=== PATIENT | male | born 1965 | race Caucasian/White ===

== ENCOUNTER → 2016-11-07 | Outpatient (CLI) | payer MEDICAID | END | disposition home or self-care (01) | LOC: MMGSC 16:25 | PROVIDERS: ATTEND Family Medicine | DX: E03.9 Hypothyroidism, unspecified (principal) | CPT/HCPCS: 36415; 84439; 84443; 84481 ==

== ENCOUNTER → 2017-02-26 | Outpatient (CLI) | payer MEDICAID ==
[2017-02-26 18:02] LABS: Basophils # (A) 0.1 k/uL (0-0.2); Basophils % (A) 1 %; CH 31.3; CHCM 34.1; Eosinophils # (A) 0.2 k/uL (0-0.7); Eosinophils % (A) 3 %; HCT 51.9 % (39.0-53.0); HDW 2.66; Luc # (Auto) 0.14; Luc % (Auto) 2; Lymphocytes # (A) 1.5 k/uL (1.0-4.8); Lymphocytes % (A) 23 %; MCH 30.2 pg (25.0-35.0); MCHC 32.7 g/dL (31.0-37.0); MCV 92.4 fL (80.0-100.0); Mean Platelet Volume 7.3; Monocytes # (A) 0.4 k/uL (0-1.0); Monocytes % (A) 6 %; Neutrophils # (A) 4.3 k/uL (1.3-7.7); Neutrophils % (A) 65 %; RBC 5.62 m/uL (4.30-5.90); RDW 13.7 % (11.5-15.5); WBC 6.5 k/uL (3.8-10.6); WBC (Perox) 6.96
[2017-02-26 18:15] LABS: ALT 32 U/L (21-72); AST 27 U/L (17-59); Alkaline Phosphatase 62 U/L (38-126); Anion Gap 12 mmol/L; Blood Urea Nitrogen 21 mg/dL (9-20); Calcium 9.6 mg/dL (8.4-10.2); Carbon Dioxide 28 mmol/L (22-30); Chloride 102 mmol/L (98-107); Cholesterol 164 mg/dL (<200); Glucose 125 mg/dL (74-99); HDL Cholesterol 37 mg/dL (40-60); Non-African American GFR(MDRD) >60 (>60 ml/min/1.73 sqM); Potassium 4.3 mmol/L (3.5-5.1); Sodium 142 mmol/L (137-145); Total Bilirubin 1.5 mg/dL (0.2-1.3); Total Protein 7.4 g/dL (6.3-8.2); Triglycerides 245 mg/dL (<150)
== END ==
LOC: MMGSC 09:23
PROVIDERS: ATTEND Nurse Practitioner Adult Health
DX: E03.9 Hypothyroidism, unspecified (principal); I10 Essential (primary) hypertension
CPT/HCPCS: 36415; 80053; 80061; 84439; 84443; 84481; 85025

== ENCOUNTER → 2021-03-12 | Outpatient (CLI) | payer MEDICAID ==
--- NOTE | 2021-03-12 16:02 | US ---
EXAMINATION TYPE: US thyroid st tissue head/neck DATE OF EXAM: 03/12/2021 COMPARISON: NONE CLINICAL HISTORY: E03.9 Hypothyroidism. Patient has been taking thyroid medication for 20 years GLAND SIZE: Right Lobe: 3.9 x 1.3 x 1.4 cm Overall Parenchyma: heterogenous Left Lobe: 3.2 x 1.1 x 1.1 cm Overall Parenchyma: heterogeneous Isthmus Thickness: 0.4 cm NODULES RIGHT: # of nodules measured on right: 1 1. 1.6 X 1.1 x 0.9 cm, mid solid or almost completely solid, isoechoic nodule, which is wider than tall, with smooth margins, without echogenic foci. Prior size: No previous LEFT: # of nodules measured on left: 0 ISTHMUS: # of nodules measured in the isthmus: 0 Bilateral neck scanned, no evidence of lymphadenopathy. Diffusely heterogeneous thyroid bilaterally. IMPRESSION: Diffusely heterogeneous thyroid gland. There is a 1.6 cm right thyroid isoechoic nodule. Continued so nographic follow-up is recommended. 2017 ACR TI-RADS LEVEL: 3 *Highest TI-RADS level nodule reported
== END | disposition home or self-care (01) ==
LOC: RADUSWWP 12:07
PROVIDERS: ATTEND Family Medicine
DX: E03.9 Hypothyroidism, unspecified (principal); E04.1 Nontoxic single thyroid nodule
CPT/HCPCS: 76536

== ENCOUNTER 2021-04-06 09:20 | Day surgery (SDC) | payer MEDICAID ==
[2021-04-06 09:43] VITALS: RESP 16; TEMP 98.7
[2021-04-06] MEDS ORDERED: ALPRAZolam 0.5 MG TAB PO STA (09:43)
[2021-04-06 11:10] VITALS: BP 135/81; PULSE 72
--- NOTE | 2021-04-06 14:41 | US ---
ULTRASOUND GUIDED FNA THYROID BIOPSY: CLINICAL HISTORY: Right thyroid nodule FINDINGS: The procedure was explained to the patient. The risks, complications, benefits and alternatives were discussed and any questions were answered. Informed consent was obtained. Patient was placed supin e on the ultrasound table and prepped and draped in the usual sterile fashion. Utilizing a 25 gauge needle, five passes were made into the requested right thyroid nodule. Patient was stable throughout the procedure. Pathology is pending. All elements of maximal barrier technique were utilized. IMPRESSION: 1. Successful ultrasound guided FNA thyroid biopsy.
== END 2021-04-06 11:05 | disposition home or self-care (01) ==
LOC: RADPROMAIN 09:20
PROVIDERS: ATTEND Otolaryngology
DX: E04.1 Nontoxic single thyroid nodule (principal)
CPT/HCPCS: 10005; 88173; 88305

== ENCOUNTER → 2021-04-06 | Outpatient (CLI) | payer MEDICAID | END | disposition home or self-care (01) | LOC: LABWHC1 10:58 | PROVIDERS: ATTEND Otolaryngology | DX: E03.9 Hypothyroidism, unspecified (principal) | CPT/HCPCS: 36415; 83516; 86800 ==

== ENCOUNTER → 2021-10-18 | Outpatient (CLI) | payer MEDICAID ==
--- NOTE | 2021-10-18 19:23 | US ---
EXAMINATION TYPE: US thyroid st tissue head/neck DATE OF EXAM: 10/18/2021 COMPARISON: US 2020 CLINICAL HISTORY: 55-year-old male E04.1 thyroid nodule. TECHNIQUE: Multiple sonographic images of the thyroid gland are obtained. FINDINGS: GLAND SIZE: Right Lobe: 4.8 x 1.7 x 1.6 cm Overall Parenchyma: heterogenous Left Lobe: 4.5 x 1.7 x 1.5 cm Overall Parenchyma: heterogeneous Isthmus Thickness: 0.3 cm NODULES RIGHT: # of nodules measured on right: 1 1. 1.4 X 1.2 x 1.0 cm, lower mid, solid or almost completely solid, heterogeneously isoechoic nodul e, which is wider than tall, with ill-defined margins, without echogenic foci. Prior size: 1.6 x 1.1 x 0.9 cm LEFT: # of nodules measured on left: 0 ISTHMUS: # of nodules measured in the isthmus: 0 Bilateral neck scanned, no evidence of lymphadenopathy. IMPRESSION: Heterogeneous glandular parenchyma could represent goiter diffuse peritonitis. Solitary 1.4 cm TR3 right thyroid nodule slightly smaller compared to 1.6 cm, previously.
== END | disposition home or self-care (01) ==
LOC: RADUSWWP 13:23
PROVIDERS: ATTEND Otolaryngology
DX: E04.1 Nontoxic single thyroid nodule (principal)
CPT/HCPCS: 76536

== ENCOUNTER → 2022-04-29 | Outpatient (CLI) | payer MEDICAID ==
--- NOTE | 2022-04-29 14:49 | US ---
EXAMINATION TYPE: US thyroid st tissue head/neck DATE OF EXAM: 04/29/2022 COMPARISON: US October 18, 2021 CLINICAL HISTORY: E04.1 Right thyroid nodule. Right thyroid nodule. Hx FNA. Patient is currently taki ng thyroid medication. GLAND SIZE: Right Lobe: 4.9 x 1.5 x 1.9 cm Overall Parenchyma: heterogenous Left Lobe: 4.1 x 1.3 x 1.5 cm Overall Parenchyma: heterogeneous Isthmus Thickness: 0.3 cm NODULES RIGHT: # of nodules measured on right: 1 1. 1.6 X 1.2 x 1.2 cm, lower mid, solid or almost completely solid, isoechoic nodule, which is as w matthew as it is tall, with ill-defined margins, without echogenic foci. Prior size: 1.4 x 1.2 x 1.0 cm LEFT: # of nodules measured on left: 0 ISTHMUS: # of nodules measured in the isthmus: 1 1. 0.6 X 0.5 x 0.3 cm solid or almost completely solid, hyperechoic nodule, which is wider than bimal l, with smooth margins, appears calcified, posterior shadowing seen. Prior size: Does not correlate. Bilateral neck scanned, hypoechoic area with hyperechoic center seen within the left neck: 1.1 x 1.2 x 0.4 cm. Heterogeneous normal-sized thyroid with stable right-sided nodule accounting for technical difference s and calcified 6 mm shadowing nodule current study not clearly seen on prior studies. Last images sh ow benign appearing subcentimeter left neck lymph node. IMPRESSION: 2017 ACR TI-RADS LEVEL: As above. No suspicious new or enlarging greater than 1.0 cm solid nodules.
== END | disposition home or self-care (01) ==
LOC: RADUSWWP 14:01
PROVIDERS: ATTEND Otolaryngology
DX: E04.1 Nontoxic single thyroid nodule (principal)
CPT/HCPCS: 76536

== ENCOUNTER → 2023-01-28 | Outpatient (CLI) | payer MEDICAID ==
--- NOTE | 2023-01-28 22:11 | US ---
EXAMINATION TYPE: US thyroid st tissue head/neck DATE OF EXAM: 01/28/2023 COMPARISON: 03/09 US CLINICAL HISTORY: E04.1 THYROID NODULE. follow up on known nodules; on thyroid medication x 10 yrs GLAND SIZE: Right Lobe: 3.6 x 1.5 x 1.0 cm Overall Parenchyma: diffusely heterogeneous Left Lobe: 2.9 x 1.3 x 1.1 cm Overall Parenchyma: diffusely heterogeneous Isthmus Thickness: 0.5 cm NODULES RIGHT: # of nodules measured on right: 1 1. 1.4 X 1.1 x 0.9 cm, mid lower, Prior size: 1.6 x 1.2 x 1.2 cm TIRADS Score: 3 TIRADS Category 3: Mildly Suspicious Composition: Solid or almost completely solid (2 points). Echogenicity: Hyperechoic or isoechoic (1 point). Shape: Wider than tall (0 points). Margin: Smooth (0 points). Echogenic foci: None or large comet-tail artifacts (0 points) Recommendation: If >2.5cm: FNA; If >1.5cm: Follow up at 1,3,5 years LEFT: # of nodules measured on left: 0 ISTHMUS: # of nodules measured in the isthmus: 1 1. 0.6 X 0.4 x 0.7 cm calcified shadowing nodule Prior size: 0.6 x 0.5 x 0.3 cm TIRADS Score: 4 TIRADS Category 4: Moderately Suspicious Composition: Indeterminate due to calcification (2 points). Echogenicity: Hyperechoic or isoechoic (1 point). Shape: Wider than tall (0 points). Margin: Smooth (0 points). Echogenic foci: Macrocalcifications (1 point) Recommendation: If >1.5cm: FNA; If >1cm: Follow up at 1,2, 3,5 years Diffusely heterogeneous and attenuating thyroid issue, difficult to distinguish nodules within the he terogeneous lobes. Bilateral neck scanned, no evidence of lymphadenopathy. IMPRESSION: 1. Heterogenous thyroid gland similar to prior's. 2. Stable Right thyroid gland and isthmus nodules which meet criteria for follow-up.
== END | disposition home or self-care (01) ==
LOC: RADUSWWP 14:47
PROVIDERS: ATTEND Otolaryngology
DX: E04.2 Nontoxic multinodular goiter (principal)
CPT/HCPCS: 76536

== ENCOUNTER → 2023-05-01 | Outpatient (CLI) | payer MEDICAID ==
[2023-05-02 03:37] LABS: T4, Free (Free Thyroxine) 1.36 ng/dL (0.80-1.80)
== END | disposition home or self-care (01) ==
LOC: LABWHC1 14:06
PROVIDERS: ATTEND Internal Medicine
DX: E03.9 Hypothyroidism, unspecified (principal)
CPT/HCPCS: 36415; 84439; 84443

== ENCOUNTER → 2023-11-18 | Outpatient (CLI) | payer MEDICAID ==
[2023-11-18 20:44] LABS: T4, Free (Free Thyroxine) 1.98 ng/dL (0.80-1.80)
== END | disposition home or self-care (01) ==
LOC: LABWHC1 14:16
PROVIDERS: ATTEND Internal Medicine
DX: E03.9 Hypothyroidism, unspecified (principal); E55.9 Vitamin D deficiency, unspecified
CPT/HCPCS: 36415; 82306; 84439; 84443

== ENCOUNTER → 2024-02-17 | Outpatient (CLI) | payer MEDICAID ==
--- NOTE | 2024-02-18 08:49 | US ---
EXAMINATION TYPE: US thyroid st tissue head/neck DATE OF EXAM: 02/17/2024 COMPARISON: Multiple, most recent 01/28/2023 CLINICAL INDICATION: Male, 58 years old with history of E04.1 Thyroid Nodule; GLAND SIZE: Right Lobe: 3.6 x 1.5 x 1.7 cm Overall Parenchyma: homogeneous Left Lobe: 2.9 x 1.0 x 1.1 cm Overall Parenchyma: homogeneous Isthmus Thickness: 0.6 cm NODULES RIGHT: # of nodules measured on right: 1 1. 1.4 X 1.1 x 1.1 cm, lower mid, solid or almost completely solid, isoechoic nodule, which is wide r than tall, with ill-defined margins, without echogenic foci. TR 3 Prior size: 1.4 x 1.1 x 0.9 cm LEFT: # of nodules measured on left: 0 ISTHMUS: # of nodules measured in the isthmus: 1 1. 0.7 X 0.7 x 0.7 cm solid or almost completely solid, hyperechoic nodule, which is circular, with lobulated or irregular margins, with echogenic foci. Prior size: 0.6 x 0.4 x 0.7 cm Bilateral neck scanned, no evidence of lymphadenopathy. IMPRESSION: Mildly suspicious nodule right lobe thyroid. Consider follow-up in one year 2017 ACR TI-RADS LEVEL: TR-RADS 3 - Mildly Suspicious: Follow if > 1.5 cm, FNA if > 2.5 cm *Highest TI-RADS level nodule reported
== END | disposition home or self-care (01) ==
LOC: RADUSWWP 15:17
PROVIDERS: ATTEND Otolaryngology
DX: E04.1 Nontoxic single thyroid nodule (principal)
CPT/HCPCS: 76536

== ENCOUNTER → 2024-05-19 | Outpatient (CLI) | payer MEDICAID ==
[2024-05-19 18:36] LABS: T4, Free (Free Thyroxine) 1.6 ng/dL (0.80-1.80)
== END | disposition home or self-care (01) ==
LOC: LABWHC1 15:32
PROVIDERS: ATTEND Internal Medicine
DX: E03.9 Hypothyroidism, unspecified (principal)
CPT/HCPCS: 36415; 84439; 84443

== ENCOUNTER → 2025-05-20 | Outpatient (CLI) | payer MEDICAID ==
--- NOTE | 2025-05-20 16:24 | US ---
EXAMINATION TYPE: US thyroid st tissue head/neck DATE OF EXAM: 05/20/2025 COMPARISON: Multiple thyroid ultrasounds with most recent 02/17/2024 CLINICAL INDICATION: Male, 59 years old with history of MULTINODULAR GOITER E042; Goiter. Patient venkat es levothyroxine. TECHNIQUE: Grayscale and color Doppler imaging of the thyroid gland. FINDINGS: GLAND SIZE: Right Lobe: 4.0 x 1.1 x 1.4 cm Overall Parenchyma: Heterogeneous Left Lobe: 3.5 x 1.3 x 1.1 cm Overall Parenchyma: Very heterogeneous, lobulated Isthmus Thickness: 0.42 cm NODULES RIGHT: # of nodules measured on right: 1 1. 1.3 X 0.9 x 0.9 cm, lower mid, solid or almost completely solid, hypoechoic nodule, which is as wide as it is tall, with smooth margins, without echogenic foci. TR 4. Prior size: 1.4 x 1.1 x 1.1 cm LEFT: # of nodules measured on left: 0 ISTHMUS: # of nodules measured in the isthmus: 1. 1. 0.7 X 0.7 x 0.3 cm solid or almost completely solid, hyperechoic nodule, which is wider than bimal l, with smooth margins, with echogenic foci. Appears calcified with posterior shadowing. TR 4. Prior size: 0.7 x 0.7 x 0.7 cm Bilateral neck scanned, *Hypoechoic area with hyperechoic center seen left neck: 1.0 x 1.0 x 0.5 cm. Consistent with a benign-appearing lymph node. IMPRESSION: Stable thyroid nodules dating back to 03/12/2021. No new suspicious or enlarging pulmonary nodule. The right thyroid nodule has been previously biopsied. The need for follow-up should be determined clini lacie. [facility], , 05/20/2025 4:21 PM
[2025-05-21 01:51] LABS: T4, Free (Free Thyroxine) 1.22 ng/dL (0.80-1.80)
== END | disposition home or self-care (01) ==
LOC: RADUSWWP 15:20
PROVIDERS: ATTEND Internal Medicine
DX: E04.2 Nontoxic multinodular goiter (principal)
CPT/HCPCS: 76536; 84439; 84443